=== PATIENT | male | born 1985 | race Caucasian/White ===

== ENCOUNTER 2017-07-17 07:55 | Inpatient (IN) | payer MEDICAID ==
[~2017-07-17] VITALS: Ht 177.8 cm; Wt 84.6 kg
[2017-07-17] VITALS (8 sets, daily range): BP systolic 109–136; BP diastolic 50–89; BMI 27.1
[2017-07-17 08:25] LABS: BASOPHILS 0.2 % (0-2); EOSINOPHILS 0.3 % (0-7); HEMATOCRIT 36.2 % (42.0-54.0); HEMOGLOBIN 12.3 g/dL (13.5-17.5); IMMATURE GRANULOCYTES 0.2 % (0-5); LYMPHOCYTES 19.9 % (15-50); MCH 32.9 pg (26.0-34.0); MCV 96.8 fL (80.0-100.0); MEAN PLATELET VOLUME 10.7 fL (7.4-10.4); MONOCYTES 18.7 % (2-11); NEUTROPHILS 60.7 % (40-80); PLATELET COUNT 92 10x3/uL (130-400); RBC 3.74 10x6/uL (4.20-6.10); RDW 12.8 % (11.5-14.5); WBC 8.7 10x3/uL (4.8-10.8)
[2017-07-17 08:34] LABS: INR 0.92 (0.85-1.17)
[2017-07-17 08:47] LABS: ANION GAP 14.2 mmol/L (8-16); BILIRUBIN - TOTAL 0.63 mg/dL (0.2-1.3); CALCIUM 9.9 mg/dL (8.5-10.1); CARBON DIOXIDE 30.8 mmol/L (21.0-32.0); CREATININE - SERUM 1.5 mg/dL (0.6-1.3); MAGNESIUM - SERUM 1.7 mg/dL (1.8-2.4); PROTEIN - SERUM 8.7 g/dL (6.4-8.2)
[2017-07-17 09:05] LABS: APPEARANCE CLEAR (CLEAR); BILIRUBIN NEGATIVE (NEGATIVE); COLOR YELLOW (YELLOW); GLUCOSE NEGATIVE (NEGATIVE); KETONE NEGATIVE (NEGATIVE); NITRITE NEGATIVE (NEGATIVE); PROTEIN TRACE mg/dL (NEGATIVE); UROBILINOGEN NORMAL (NORMAL)
[2017-07-17 09:06] LABS: BACTERIA NONE SEEN /hpf (NONE SEEN); EPITHELIAL CELLS NSEEN /hpf (0-5); RED CELLS - URINE 0-5 /hpf (0-5); WHITE CELLS - URINE NSEEN /hpf (0-5)
[2017-07-17 09:38] LABS: UDS - AMPHET NEGATIVE QUAL (NEGATIVE); UDS - BARB NEGATIVE QUAL (NEGATIVE); UDS - BENZO NEGATIVE QUAL (NEGATIVE); UDS - COCAINE NEGATIVE QUAL (NEGATIVE); UDS - OPIATE NEGATIVE QUAL (NEGATIVE); UDS - PCP NEGATIVE QUAL (NEGATIVE); UDS - THC NEGATIVE QUAL (NEGATIVE)
--- NOTE | 2017-07-17 14:20 | NUR ---
RECEIVED REPORT FROM ER. PATIENT TO UNIT SOON.
--- NOTE | 2017-07-17 14:34 | NUR ---
PATIENT ARRIVED TO UNIT VIA WHEELCHAIR AT THIS TIME. NO DISTRESS.
[2017-07-17] MEDS ORDERED: METOPROLOL TART50 MG PO (14:42)
[2017-07-17] MEDS ORDERED: CELEXA20 MG PO (14:43)
[2017-07-17] MEDS ORDERED: HYDROXYZINE HCL50 MG PO (14:43)
[2017-07-17] MEDS ORDERED: PATOWN PO (14:46)
--- NOTE | 2017-07-17 15:04 | NUR ---
PATIENT HAS TRIED TO LEAVE THE UNIT X3. SISTER IS TRYING TO KEEP PATIENT IN ROOM. PATIENT IS HALLUCINATING. PATIENT THINKS HE IS HERE TO GET A TATTOO. PATIENT SITTING ON BED AT THIS TIME. NO CORONADO HAVING DISCUSSION WITH PATIENTS SISTER AT THIS TIME. THIS NURSE HAS ATTEMPTED TO CONNECT IV FLUIDS, PATIENT REFUSES AND KEEPS TRYING TO RIP IV OUT.AWAITING FOR NEW ORDERS FROM .
--- NOTE | 2017-07-17 16:04 | NUR ---
PATIENT TAKEN TO ICU AT THIS TIME. PATIENT RIPPED IV OUT, TRYING TO LEAVE, UNCOOPERATIVE. ATTEMPTING TO CALL REPORT TO ICU AT THIS TIME. SHAHLA TO RECIEVE REPORT.
--- NOTE | 2017-07-17 16:30 | NUR ---
REPORT GIVEN TO ELIZABET AT THIS TIME IN ICU SHAHLA WAS BUSY WITH PATIENT.
--- NOTE | 2017-07-17 17:41 | NUR ---
1605 RECEIVED FROM FLOOR PER BED. AWAKE AND VERY CONFUSED. IN DT'S HALLUCINATION. WRIST RESTRAINTS IN PLACE. HANDS SHAKING. SOMEWHAT COOPERATIVEWITH EXAM. LOUD AT TIMES. DR. LOCO NOTIFIED OF TRANSFER ORDERS RECEIVED. ATIVAN IV GIVEN. HALDOL 5 MG IM. IV RIGHT AC GOOD BLOOD RETURN FLUSHES WITHOUT DIFFICULTY. WAITING BANANA BAG. RESP DEEP AND REGULAR LUNGS CLEAR .ABD SOFT WITH BOWEL SOUNDS . PERIPHERAL PULSES PALABLE. NO EDEMA NOTED. DENIES PAIN. FAMILY HERE.
--- NOTE | 2017-07-17 19:30 | NUR ---
ASSESSMENT COMPLETE. S1S2. NSR SHOWING ON MONITOR. RR EQUAL NON LABORED. PT SHAKING; TEETH CLEANCHED. HALUCINATIONS NOTED; PT RAMBLING ABOUT GETTING A TATTOO. RESTRAINTS IN PLACE. RADIAL AND PEDAL PULSES PALPATED. PUPIL 4MM; BRISK. PT WEARING GLASSES. WILL CONTINUE TO MONITOR.
--- NOTE | 2017-07-17 20:30 | NUR ---
FAMILY AT BEDSIDE. UPDATE GIVEN. QUESTIONS ANSWERED.
--- NOTE | 2017-07-17 21:40 | NUR ---
SISTER (KAREY) DROPPED OFF PT HOME MEDICATION; TRIUMEQ 20 PILLS COUNTED AND VERIFIED WITH 2ND RN
--- NOTE | 2017-07-17 21:45 | NUR ---
SPOKE WITH DR. LOCO; ORDERS TO RESTART MEDICAITON TONIGHT.
--- NOTE | 2017-07-17 22:00 | NUR ---
PT HOME MEDICATION; TRIUMEQ GIVEN; 1 TABLET. COUNT NOW 19. GIVEN WITHOUT SCANNING PER HOUSE SUPERVISIOR SHAHLA; WILL SEND TO PHARMACY IN MORNING FOR LABELS AND COUNTING.
--- NOTE | 2017-07-17 23:10 | NUR ---
REASSESSMENT COMPLETE. NO ACUTE CHANGES FROM PREVIOUS ASSESSMENT. WILL CONTINUE TO MONITOR.
--- NOTE | 2017-07-17 23:51 | NUR ---
PRN HALIDOL AND ATIVAN GIVEN. WILL CONTINUE TO MONTIOR.
--- NOTE | 2017-07-17 23:51 | NUR ---
PT INCREASE IN HR; AGITATION. PT AT BEDSIDE; URINATED INTO FLOOR. PT ASSISTED BACK INTO BED. PT RANTING ABOUT GETTING OUT OF THE HOSPITAL BECAUSE OF A ZOMBIE APOCALPYSE. PULLING AT RESTRAINTS AND ATTEMPTING TO GET OUT OF BED. PT REMAINS CONFUSED.
[2017-07-18] VITALS (24 sets, daily range): BP systolic 111–149; BP diastolic 65–117
--- NOTE | 2017-07-18 01:02 | NUR ---
PT RESTING; EYES CLOSES. VSS. NO DISTRESS NOTED.
--- NOTE | 2017-07-18 03:10 | NUR ---
REASSESSMENT COMPLETE. NO ACUTE CHANGES FROM PREVIOUS ASSESSMENT.
[2017-07-18 05:16] LABS: BASOPHILS 0.4 % (0-2); EOSINOPHILS 1.3 % (0-7); HEMOGLOBIN 9.9 g/dL (13.5-17.5); LYMPHOCYTES 23.7 % (15-50); MCH 32.4 pg (26.0-34.0); MONOCYTES 15.6 % (2-11); RBC 3.06 10x6/uL (4.20-6.10); RDW 13.2 % (11.5-14.5)
[2017-07-18 05:24] LABS: PLATELET COUNT 70 10x3/uL (130-400); WBC 4.7 10x3/uL (4.8-10.8)
--- NOTE | 2017-07-18 05:24 | NUR ---
NO VISITORS DURING VISITATION.
[2017-07-18 05:45] LABS: ALKALINE PHOSPHATASE 48 U/L (46-116); ALT (SGPT) 72 U/L (10-68); BILIRUBIN - TOTAL 0.47 mg/dL (0.2-1.3); CALCIUM 8.4 mg/dL (8.5-10.1); CARBON DIOXIDE 26.4 mmol/L (21.0-32.0); CHLORIDE - SERUM 107 mmol/L (98-107); GLUCOSE 85 mg/dL (74-106); POTASSIUM - SERUM 3.3 mmol/L (3.5-5.1); SODIUM 142 mmol/L (136-145)
[2017-07-18 05:53] LABS: CALC OSMOLALITY 280 mosm/kg (275-300); CREATININE - SERUM 0.9 mg/dL (0.6-1.3); PROTEIN - SERUM 6.4 g/dL (6.4-8.2); UREA NITROGEN 9 mg/dL (7-18); eGFR NON AFRICAN AMERICAN > 90 mL/min (90-120)
--- NOTE | 2017-07-18 07:00 | NUR ---
REC'D REPORT AND RESUMED CARE, SLEEPING, AROUSABLE TO VERBAL STIMULI, SPEECH GARBLED, CONFUSED, O2 VIA ROOM AIR, SHOWING ST ON MONITOR, OTHER VSS, DENIES PAIN, ASSESSMENT COMPLETE PER FLOWSHEET, B/L RESTRAINTS IN PLACE, PATIENT CALM AND COOPERATIVE AT THIS TIME
--- NOTE | 2017-07-18 07:45 | NUR ---
REFUSED BREAKFAST TRAY, STATES NOT HUNGRY
--- NOTE | 2017-07-18 08:00 | NUR ---
DR SIMMONS HERE FOR EVAL, NEW ORDERS GIVEN
--- NOTE | 2017-07-18 11:00 | NUR ---
RESTRAINTS DC'D OFF, URINAL TO BEDSIDE, 700 CC URINE TO CONTAINER, ASSESSMENT COMPLETED PER FLOWSHEET, VSS, DENIES PAIN, CALL LIGHT IN REACH, VOICES NO NEEDS AT THIS TIME
--- NOTE | 2017-07-18 12:00 | NUR ---
MOTHER AND SISTER AT BEDSIDE, STATUS UPDATED, VOICES NO NEEDS AT THIS TIME
--- NOTE | 2017-07-18 15:00 | NUR ---
CONTINUES TO BE COOPERATIVE, NO SIGNS OF DISTRESS, VSS, MVI BAG INFUSING AT 125 CC/HR, POTASSIUM 10 MEQ COMPLETED, ASSESSMENT COMPLETE PER FLOWSHEET, WILL CONTINUE WITH POC, NO NEEDS AT THIS TIME
--- NOTE | 2017-07-18 16:00 | NUR ---
FAMILY AT BEDSIDE, STATUS UPDATDE, VOICES NO NEEDS AT THIS TIME, I AND OS COMPLETED, PATIENT SLEEPING WITH NO SIGNS OF DISTRESS
--- NOTE | 2017-07-18 17:14 | NUR ---
DINNER TRAY REFUSED, STATES NO HUNGRY, FAMILY AT BEDSIDE, MEAL BROUGHT IN FROM [facility] REFUSED ALSO
--- NOTE | 2017-07-18 17:55 | NUR ---
CALLED TO ROOM, FAMILY CONCERNED PATIENT FEELS HOT, TEMP 103.3, LABS AND MEDS ORDERED PER DR SIMMONS
--- NOTE | 2017-07-18 19:00 | NUR ---
RECIEVED SHIFT REPORT. PT IS LYING IN BED. PT AROUSES TO VOICE. PT IS ABLE TO TURN SELF IN BED FOR COMFORT AND SKIN CARE. IV IS PATENT AND FLUIDS ARE RUNNING PER ORDER. PT DENIES ANY PAIN AT THIS TIME. SINUS TACH ON THE MONITOR. NO NEEDS ARE VERBALIZED AT THIS TIME. WILL CONTINUE TO MONITOR. SIDE RAILS ARE UP X 2. BED IS IN LOWEST POSITION. CALL LIGHT IS WITHIN REACH.
[2017-07-18 19:08] LABS: BASOPHILS 0.1 % (0-2); EOSINOPHILS 0.1 % (0-7); HEMATOCRIT 31.6 % (42.0-54.0); HEMOGLOBIN 10.5 g/dL (13.5-17.5); IMMATURE GRANULOCYTES 0.5 % (0-5); MCH 32.3 pg (26.0-34.0); MCHC 33.2 g/dL (31.0-37.0); MCV 97.2 fL (80.0-100.0); MEAN PLATELET VOLUME 9.7 fL (7.4-10.4); MONOCYTES 23.4 % (2-11); NEUTROPHILS 64.9 % (40-80); PLATELET COUNT 71 10x3/uL (130-400); RBC 3.25 10x6/uL (4.20-6.10); RDW 13.1 % (11.5-14.5)
[2017-07-18 19:10] LABS: WBC 8.8 10x3/uL (4.8-10.8)
--- NOTE | 2017-07-18 19:55 | NUR ---
PRN TYLENOL ADMINISTERED FOR TEMP OF 103.1. WILL REASSESS.
--- NOTE | 2017-07-18 20:13 | NUR ---
URINE SENT TO LAB FOR WARRENTED TESTS.
--- NOTE | 2017-07-18 21:00 | NUR ---
PT TEMP REASSESED TO BE 102.1. ICE PACKS APPLIED TO UNDERARMS. MEDICATION ADMINISTERED PER ORDER. PT TOLERATED WELL. IS APPROPRIATE AND COOPERATIVE. WILL MONITOR. SIDE RAILS X 2. BED LOW. CALL LIGHT IN REACH.
--- NOTE | 2017-07-18 23:11 | NUR ---
PT RESTING IN BED WITH NO DISTRESS. VSS. NO CHANGE FROM PREVIOUS ASSESSMENT. SIDE RAILS X 2. BED LOW. CALL LIGHT IN REACH.
[2017-07-19] VITALS (22 sets, daily range): BP systolic 106–149; BP diastolic 62–115; Ht 177.8 cm; Wt 84.6 kg
--- NOTE | 2017-07-19 01:09 | NUR ---
PT RESTING IN BED WITH NO DISTRESS. VSS. SIDE RAILS X 2. BED LOW. CALL LIGHT IN REACH.
--- NOTE | 2017-07-19 03:09 | NUR ---
REASSESSMENT PER FLOWSHEET COMPLETED. PT IN NO DISTRESS. AWAKE WATCHING TELEVISION. VSS. WILL MONITOR. SIDE RAILS X 2. BED LOW. CALL LIGHT IN REACH.
--- NOTE | 2017-07-19 03:32 | NUR ---
MEDICATION ADMINISTERED PER EMAR. PT IS AWAKE AND CONVERSANT IN ROOM. VSS. PT KNOWS HE IS IN THE HOSPITAL, THE YEAR, HE KNOWS THAT MARCUS JUST HAPPENED. AND HE STATES HE KNOWS WHY HE CAME TO THE HOSPITAL. HOWEVER, HE STATES HE DOES NOT KNOW WHAT PART OF THE HOSPITAL HE IS IN. I INSTRUCTED PT THAT HE WAS IN THE ICU. HE ASKED HOW MUCH LONGER THAT HE HAS TO BE IN HERE. I INSTRUCTED PT THAT THE DOCTOR WOULD HAVE TO COME IN AND GO OVER DETAILS WITH HIM. PT STATED HE HAS A JOB INTERVIEW TOMORROW AND THAT IS WHY HE NEEDS TO GO. PT REQUESTING A BLANKET. NO FURTHER NEEDS AT THIS TIME. SIDE RAILS X 2. BED LOW. CALL LIGHT IN REACH.
[2017-07-19 03:36] LABS: BASOPHILS 0.2 % (0-2); EOSINOPHILS 0.3 % (0-7); HEMATOCRIT 31.4 % (42.0-54.0); HEMOGLOBIN 10.3 g/dL (13.5-17.5); IMMATURE GRANULOCYTES 0.4 % (0-5); LYMPHOCYTES 19.1 % (15-50); MCH 32.5 pg (26.0-34.0); MCHC 32.8 g/dL (31.0-37.0); MCV 99.1 fL (80.0-100.0); MEAN PLATELET VOLUME 9.1 fL (7.4-10.4); MONOCYTES 21.2 % (2-11); NEUTROPHILS 58.8 % (40-80); RBC 3.17 10x6/uL (4.20-6.10); RDW 13.5 % (11.5-14.5); WBC 9.1 10x3/uL (4.8-10.8)
[2017-07-19 03:39] LABS: PLATELET COUNT 95 10x3/uL (130-400)
[2017-07-19 04:04] LABS: ALBUMIN 2.9 g/dL (3.4-5.0); ALKALINE PHOSPHATASE 47 U/L (46-116); ALT (SGPT) 54 U/L (10-68); AMYLASE - SERUM 36 U/L (25-115); BILIRUBIN - TOTAL 0.48 mg/dL (0.2-1.3); CALCIUM 8.5 mg/dL (8.5-10.1); CARBON DIOXIDE 29.3 mmol/L (21.0-32.0); CHLORIDE - SERUM 104 mmol/L (98-107); CREATININE - SERUM 1.1 mg/dL (0.6-1.3); GLUCOSE 100 mg/dL (74-106); LIPASE 116 U/L (73-393); PHOSPHOROUS 3.2 mg/dL (2.5-4.9); POTASSIUM - SERUM 3.7 mmol/L (3.5-5.1); PRO BNP 1071 pg/mL (0-125); SODIUM 139 mmol/L (136-145); THYROID STIMULATING HORMONE 0.43 uIU/mL (0.36-3.74); eGFR NON AFRICAN AMERICAN 83 mL/min (90-120)
[2017-07-19 04:05] LABS: MAGNESIUM - SERUM 2.6 mg/dL (1.8-2.4)
[2017-07-19 04:10] LABS: CALC OSMOLALITY 275 mosm/kg (275-300); UREA NITROGEN 8 mg/dL (7-18)
--- NOTE | 2017-07-19 05:17 | NUR ---
PT IN BED WITH NO DISTRESS. AROUSES TO VOICE. RE-ASSESSMENT PER FLOWSHEET. NO NEEDS VOICED. WILL MONITOR. SIDE RAILS X 2. BED LOW. CALL LIGHT IN REACH.
--- NOTE | 2017-07-19 07:38 | NUR ---
RECIEVED REPORT ASSUMMED CARE OF PT NOTED TO BE RESTING IN BED WITH EYES CLOSED DIMINISHED SOUNDS NOTED TO BILATERAL BASES NO DT NOTED AT THIS TIME PT AROUSES EASILY FROM SLEEP MORE COHERENT THAN CHARTED IN PREVIOUS ASSESSMENTS. WILL CONTINUE TO MONITOR CLOSELY.
--- NOTE | 2017-07-19 08:58 | NUR ---
PT RESTING IN BED NO DISTRESS NO DISTRESS NOTED FAMILY AT BEDSIDE AT THIS TIME CALL LIGHT IN REACH SIDE RAILS UP X 2 PT EATING BREAKFAST IS ALERT AND ORINETED X 3 DID QUESTION WHY HE WAS IN ICU BUT WAS AWARE HE WAS IN ICU.
--- NOTE | 2017-07-19 09:55 | NUR ---
PT RESTING QUIETLY WITH NO ACUTE DISTRESS NOTED VOICES ALL NEEDS OT STAFF AROUSES EASILY TO VERBAL STIMULI.
--- NOTE | 2017-07-19 11:00 | NUR ---
PT RESTING IN BED NO DISTRESS NOTED VOICES ALL NEEDS OT STAFF CALL LIGHT IN REACH SIDE RAILS UP X 2
--- NOTE | 2017-07-19 12:30 | NUR ---
PT EATING LUNCH MEAL FAMILY AT SIDE NO DISTRESS NO DELUSIONS NOTED FINE TREMMORS NOTED TO BILATERAL HANDS TEMP 99.4
--- NOTE | 2017-07-19 14:25 | NUR ---
RESTING COMFORTABLY AT THIS TIMEE.. PT RECIEVEING LIBRIUM FOR DTs.... TREMORS WHEN AWAKE ... AAOX4 WHEN AWAKE..MBT
--- NOTE | 2017-07-19 14:32 | NUR ---
PT RESTING IN BED DR LEVIN HERE ROUNDING. NO DISTRESS NOTED.
--- NOTE | 2017-07-19 19:00 | NUR ---
REPORT RECIEVED, SHIFT ASSESSMENT COMPLETE, PT IS ALERT AND ORIENTED, ON RA WITH 97% O2 SAT. LUNGS CLEAR IN ALL LOBES, S1S2, CM-NSR, PATENT RIGHT FA PIV WITH NS INFUSING VIA PUMP, ABDOMEN IS SOFT AND FLAT WITH ACTIVE BS, URINAL AT BEDSIDE, NO EDEMA NOTED, ALL PPP, VSS, CALL LIGHT IN REACH
--- NOTE | 2017-07-19 21:15 | NUR ---
FAMILY AT BEDSIDE, UPDATE GIVEN
--- NOTE | 2017-07-19 23:00 | NUR ---
REASSESSMENT COMPLETE, NO CHANGES NOTED, PT RESTING AT THIS TIME, VSS, CALL LIGHT IN REACH
[2017-07-20] VITALS (13 sets, daily range): BP systolic 109–137; BP diastolic 69–99
--- NOTE | 2017-07-20 01:00 | NUR ---
PT RESTING AT THIS TIME, WILL CON'T TO MONITOR
--- NOTE | 2017-07-20 03:00 | NUR ---
PT AWAKE AT THIS TIME, DENIES ANY NEEDS OR WANTS, VSS, CALL LIGHT IN REACH
[2017-07-20 04:25] LABS: BASOPHILS 0.2 % (0-2); EOSINOPHILS 1.9 % (0-7); HEMATOCRIT 27.8 % (42.0-54.0); HEMOGLOBIN 9.3 g/dL (13.5-17.5); IMMATURE GRANULOCYTES 0.3 % (0-5); LYMPHOCYTES 23.8 % (15-50); MCH 32.9 pg (26.0-34.0); MCHC 33.5 g/dL (31.0-37.0); MCV 98.2 fL (80.0-100.0); MEAN PLATELET VOLUME 9.5 fL (7.4-10.4); MONOCYTES 19.8 % (2-11); PLATELET COUNT 135 10x3/uL (130-400); RBC 2.83 10x6/uL (4.20-6.10); RDW 13.2 % (11.5-14.5); WBC 5.9 10x3/uL (4.8-10.8)
[2017-07-20 04:43] LABS: ALBUMIN 2.6 g/dL (3.4-5.0); ALKALINE PHOSPHATASE 43 U/L (46-116); BILIRUBIN - TOTAL 0.21 mg/dL (0.2-1.3); CALC OSMOLALITY 276 mosm/kg (275-300); CALCIUM 8.2 mg/dL (8.5-10.1); CARBON DIOXIDE 28.9 mmol/L (21.0-32.0); CHLORIDE - SERUM 105 mmol/L (98-107); CREATININE - SERUM 0.9 mg/dL (0.6-1.3); GLUCOSE 96 mg/dL (74-106); PROTEIN - SERUM 6.4 g/dL (6.4-8.2); SODIUM 140 mmol/L (136-145); UREA NITROGEN 7 mg/dL (7-18); eGFR NON AFRICAN AMERICAN > 90 mL/min (90-120)
[2017-07-20 04:54] LABS: ALT (SGPT) 38 U/L (10-68); POTASSIUM - SERUM 3.1 mmol/L (3.5-5.1)
--- NOTE | 2017-07-20 05:15 | NUR ---
PT RESTING AT THIS TIME, WILL CON'T TO MONITOR
--- NOTE | 2017-07-20 07:00 | NUR ---
RE'D REPORT AND RESUMED CARE, SLEEPIMG, AROUSABLE TO VERBAL STIMULI, VSS, DENIES PAIN, ASSESSMENT COMPLETED PER FLOWSHEET, INDEPENDENT WITH REPOSITIONING, CALL LIGHT IN REACH, MOTHER AT BEDSIDE, VOICES NO NEEDS AT THIS TIME
--- NOTE | 2017-07-20 08:00 | NUR ---
BREAKFAST TRAY TO BEDSIDE, INNDEPENDENT WITH SET UP AND EATING
--- NOTE | 2017-07-20 11:00 | NUR ---
RESTING WATCHING TV, VSS, NO ACUTE CHANGE FROM PREVIOUS ASSESSMENT, CALL IHGT IN REACH, NO NEEDS AT THIS TIME
--- NOTE | 2017-07-20 14:01 | NUR ---
* Is the patient Alert and Oriented? Yes 0 * PCP Lyn Russell @ [facility] 0 * Pharmacy [facility] 0 * Preadmission Environment Home with Family 0 * ADLs Independent 0 * List name and contact numbers for known caregivers / representatives who currently or will assist patient after discharge: Mother Michelle Comer [phone] 0 * Additional services required to return to the preadmission environment? Yes 0 * Can the patient safely return to the preadmission environment? Yes 0 * Has this patient been hospitalized within the prior 30 days at any hospital? No Patient Name: GENESIS LOUIS Admission Status: ER Accout number: [id number] Admission Date: 07-17-2017 : 1985 Admission Diagnosis: Attending: KENNEY LOCO Current LOS: 3 Anticipated DC Date: Planned Disposition: Home Primary Insurance: MEDICAID [place] PEND[place] Discharge Planning Comments: CM met with patient to assess dc plans/needs. He states he shares a home with his sister. He states he is presently unemployed, but has a job lined up and should begin in a couple of weeks. He reports he is independent with all ADL's. Discussed ETOH treatment programs. Provided written literature of local resources. He has gone to outpatient treatment at [facility] & plans to go back. Answered all questions. CM will follow & assist as needed. Client Program Manager: Dorie Plaza
--- NOTE | 2017-07-20 14:53 | NUR ---
REPORT CALLED TO JENAE PRIMARY RECEIVING NURSE
--- NOTE | 2017-07-20 16:00 | NUR ---
PT TRANSFERED FROM ICU PT ARRIVED VIA WHEELCHAIR NO COMPLIANTS BANNA BAG INFUSING TO RIGHT FOREARM IV AT 50CC/HR WILL MONITER
--- NOTE | 2017-07-20 18:15 | NUR ---
PT UP TO SHOWER AD JOSE ARMANDO TOLERATED WELL WILL MONITER
[2017-07-21 02:00] VITALS: BP 138/79
[2017-07-21 06:31] LABS: ALKALINE PHOSPHATASE 46 U/L (46-116); ALT (SGPT) 38 U/L (10-68); BILIRUBIN - TOTAL 0.15 mg/dL (0.2-1.3); CALC OSMOLALITY 275 mosm/kg (275-300); CARBON DIOXIDE 28.7 mmol/L (21.0-32.0); CHLORIDE - SERUM 104 mmol/L (98-107); CREATININE - SERUM 0.9 mg/dL (0.6-1.3); GLUCOSE 96 mg/dL (74-106); POTASSIUM - SERUM 3.8 mmol/L (3.5-5.1); PROTEIN - SERUM 6.8 g/dL (6.4-8.2); SODIUM 140 mmol/L (136-145); eGFR NON AFRICAN AMERICAN > 90 mL/min (90-120)
[2017-07-21 06:32] LABS: UREA NITROGEN 4 mg/dL (7-18)
[2017-07-21 06:44] LABS: BASOPHILS 0.3 % (0-2); EOSINOPHILS 2.6 % (0-7); HEMATOCRIT 29.5 % (42.0-54.0); HEMOGLOBIN 9.6 g/dL (13.5-17.5); IMMATURE GRANULOCYTES 0.2 % (0-5); LYMPHOCYTES 30.6 % (15-50); MCH 32.3 pg (26.0-34.0); MCHC 32.5 g/dL (31.0-37.0); MCV 99.3 fL (80.0-100.0); MEAN PLATELET VOLUME 9.4 fL (7.4-10.4); NEUTROPHILS 51.3 % (40-80); RBC 2.97 10x6/uL (4.20-6.10); RDW 13.5 % (11.5-14.5); WBC 6.2 10x3/uL (4.8-10.8)
[2017-07-21 06:45] LABS: PLATELET COUNT 201 10x3/uL (130-400)
--- NOTE | 2017-07-21 08:00 | NUR ---
REC'D IN BED AWAKE AND ALERT. RESP EVEN AND UNLABORED WITH NO DISTRESS NOTED. ASSESSMENT COMPLETED. NO C/O NOTED OR VOICED. C/L IN REACH AT BEDSIDE.
[2017-07-21 08:20] VITALS: BP 128/76
[2017-07-21] MEDS ORDERED: VITAMIN B-1100 M1 PO (12:03)
[2017-07-21] MEDS ORDERED: LIBRIUM25 MG PO (12:04)
[2017-07-21] MEDS ORDERED: FOLIC ACID1 MG PO (12:04)
[2017-07-21 12:26] VITALS: BP 119/78
--- NOTE | 2017-07-21 15:55 | NUR ---
PT WAS DISCHARGE AT THIS TIME WITH D/C SUMMARY AND RX IN HAND. NO C/O NOTED OR VOICED . PT VOICED UNDERSTANDING ABOUT FOLLOW UP APPOINTMENT. FAMILY WAS AT BEDSIDE. IV D/C, NO C/O NOTED IN STABLE CONDITION UPON DEPARTURE.
--- NOTE | 2017-07-23 11:18 | EC ---
PATIENT:GENESIS LUOIS DATE OF SERVICE: 07/17/17 SEX: M MEDICAL RECORD: [id number] DATE OF : [birth year] LOCATION:[facility] AGE OF PATIENT: 32 ADMISSION DATE: 07/17/17 REFERRING PHYSICIAN: INTERPRETING PHYSICIAN: NANCI SAHW MD ECHOCARDIOGRAM REPORT ECHO CHARGES 4 ECHO COMPLETE CLINICAL DIAGNOSIS: TACHYCARDIA ECHOCARDIOGRAPHIC MEASUREMENTS (adult normal given) AC root (d.<3.7cm) 2.6 cm LV Septum d (<1.2 cm> 1.3 cm Valve Excursion 1.2 cm LV Septum (systole) 1.5 cm Left Atria (s.<4.0cm> 2.7 cm LVPW d(<1.2cm) 1.4 cm RV (d.<2.3cm) 3.3 cm LVPW (sytole) 1.6 cm LV diastole(<5.6CM) 5.6 cm MV E-F(>70mm/sec) cm LV systole 3.9 cm LVOT Diameter 2.3 cm MV exc.(>10mm) 2.3 cm Est.ejection fraction (50-75%) % Pericardial Effusion N DOPPLER: LVIT cm/sec A 85.0 cm/sec E 98.0 cm/sec LA cm/sec RVSP 26 mmHg LVOT 109 cm/sec AOP1/2T m/s Asc. Ao 154 cm/sec RVOT 98 cm/sec RA cm/sec PA 140 cm/sec AV Gradient Peak 9.52 mmHg AV Mean 5.35 mmHg AV Area 3.1 cm MV Gradient Peak 3.75 mmHg MV Mean 1.84 mmHg MV Area cm COMMENTS: Clinical Transplant Coordinator: 2 BRINA DONOHUE Spinneret Cleaner: 4 Dr. Shaw TAPE# PACS DATE OF SERVICE: 07/19/2017 PROCEDURE: Transthoracic echocardiogram. FINDINGS: 1. The left ventricle is hyperdynamic and tachycardic. Inflow characteristics are normal. Ejection fraction is 65% to 70%. There are no regional wall motion abnormalities. 2. The left atrium is normal in size and normal in function. 3. The aortic valve is normal. ECHOCARDIOGRAM REPORT [id number] GENESIS LOUIS 4. The mitral valve is normal. 5. The tricuspid valve is normal. 6. The right atrium is mildly dilated. 7. The right ventricle is mildly dilated. 8. The IVC is normal in size and collapses with inspiration, indicating likely [id number] central venous pressure. CONCLUSION: This is a normal echocardiogram. There are no gross abnormalities seen. TRANSINT:[id number] Voice Confirmation ID: [id number] DOCUMENT ID: [id number] NANCI SHAW MD at 1118 CC: [id number] DICTATION DATE: 07/19/17 1530 WINDOW DRESSER: 07/19/17 1608 DIS IN 07/21/17 [facility] [address] [place] [address]
== END 2017-07-21 15:55 | disposition home or self-care (01) | DRG 896 ==
LOC: D.ER 07:55 → D.M2 14:15 → D.ICU 14:15 → D.MS 14:15 → D.ICU 16:31 → D.MS 07-20 15:11
PROVIDERS: Emergency Medicine; Family Medicine; ADMIT Emergency Medicine
DX: F10.231 Alcohol dependence with withdrawal delirium (principal); B20 Human immunodeficiency virus [HIV] disease; F32.9 Major depressive disorder, single episode, unspecified; F41.9 Anxiety disorder, unspecified; E87.6 Hypokalemia; F10.251 Alcohol dependence with alcohol-induced psychotic disorder with hallucinations; D69.6 Thrombocytopenia, unspecified; R50.9 Fever, unspecified